=== PATIENT | female | born 2000 | race Caucasian/White ===

== ENCOUNTER 2023-04-07 08:34 | Outpatient (CLI) | payer BC | END 2023-04-07 08:35 | disposition home or self-care (01) | LOC: CSHCT 08:34 | PROVIDERS: ATTEND Student in an Organized Health Care Education/Training Program | DX: R51.9 Headache, unspecified (principal); R11.0 Nausea; R10.30 Lower abdominal pain, unspecified; Z80.41 Family history of malignant neoplasm of ovary; N94.89 Other specified conditions associated with female genital organs and menstrual cycle | CPT/HCPCS: 70470; 74177 ==

== ENCOUNTER 2025-01-16 11:46 | Day surgery (SDC) | payer BC ==
[2025-01-15 15:09] VITALS: BMI 23.3
[2025-01-15 15:54] LABS: Hematocrit 38.3 % (34.9-44.5); Hemoglobin 12.7 g/dL (12.0-15.5); Mean Corpuscular Hemoglobin 28.0 pg (27.0-33.0); Mean Corpuscular Volume 84.5 fL (81.6-98.3); Platelet Count 288 10x3/uL (150-450); Red Blood Cell (RBC) Count 4.53 10x6/uL (3.90-5.03); White Blood Cell (WBC) Count 7.87 10x3/uL (3.5-10.5)
[2025-01-15 16:11] LABS: BHCG - Serum Negative (NEGATIVE); Pregs Control Background? CLEAR/WHITE (CLR/WHITE); Pregs Control Bar Appear? YES (CONTROL BAR)
[2025-01-16] MEDS ORDERED: Bupivacaine HCl 0.5%/Epinephrine 1:200,000/PF 30 ml Vial ONE (11:57)
[2025-01-16] MEDS ORDERED: Gabapentin 300 MG CAP ONE (12:00)
[2025-01-16] MEDS ORDERED: Famotidine/PF 20 mg/2ml Vial ONE (12:01)
[2025-01-16] MEDS ORDERED: CEFAZOLIN 2 GM VIAL ONE (12:33)
[2025-01-16] MEDS ORDERED: SUGAMMADEX SODIUM 200 MG/2 ML VIAL ONE (12:37)
[2025-01-16] MEDS ORDERED: PROPOFOL 20 ML ONE (12:37)
== END 2025-01-16 16:50 | disposition home or self-care (01) ==
LOC: CSHSDC 11:46
PROVIDERS: ATTEND Obstetrics & Gynecology
PROC: 0UB54ZZ Excision of Right Fallopian Tube, Percutaneous Endoscopic Approach (ICD-10-PCS; principal; 2025-01-16)
DX: N83.8 Other noninflammatory disorders of ovary, fallopian tube and broad ligament (principal); N83.201 Unspecified ovarian cyst, right side
CPT/HCPCS: 84703; 85027; 86850; 86900; 86901; 88304; J1100; J1308; J2250; J2704; S2900